=== PATIENT | female | born 1985 | race Caucasian/White ===

== ENCOUNTER → 2024-10-28 11:59 | Outpatient (REF) | payer OTHER, SELFPAY | LOC: HWRAD 11:59 | PROVIDERS: ATTENDING PHYSICIAN Internal Medicine Rheumatology; FAMILY PHYSICIAN Internal Medicine | DX: D75.839 Thrombocytosis, unspecified (principal); G43.909 Migraine, unspecified, not intractable, without status migrainosus; R53.82 Chronic fatigue, unspecified; R79.82 Elevated C-reactive protein (CRP); Z51.81 Encounter for therapeutic drug level monitoring | CPT/HCPCS: 72110 ==